=== PATIENT | female | born 2000 | race Caucasian/White ===

== ENCOUNTER 2021-09-20 18:50 | Emergency (ER) | payer OTHER ==
[~2021-09-20] VITALS: Ht 165.1 cm; Wt 68.0 kg
[2021-09-20 20:01] LABS: ABSOLUTE NEUTROPHILS 6.5 thou/uL (1.4-8.2); BASOPHILS 0.5 % (0.0-2.0); EOSINOPHILS 1.7 % (0.0-3.0); HEMATOCRIT 47.7 % (37.0-47.0); HEMOGLOBIN 16.6 gm/dL (12.0-15.0); LYMPHOCYTES 18.1 % (24.0-44.0); MCH 28.1 pg (26.0-34.0); MCHC 34.9 g/dL (28.0-37.0); MCV 80.5 fL (80.0-100.0); MONOCYTES 5.4 % (1.0-8.0); PLATELET COUNT 372 thou/uL (150-400); POLYS 74.3 % (36.0-66.0); RBC 5.93 mil/uL (4.20-5.00); RDW 14.2 % (10.5-14.5); WBC 8.7 thou/uL (4.0-11.0)
[2021-09-20 20:12] LABS: CALCIUM 9.5 mg/dL (8.5-10.1)
[2021-09-20 20:18] LABS: ALBUMIN 4.4 g/dL (3.4-5.0); DIRECT BILIRUBIN 0.5 mg/dL (<0.1-0.2); TOTAL BILIRUBIN 1.5 mg/dL (0.2-1.0); TOTAL PROTEIN 8.2 g/dL (6.4-8.2)
[2021-09-20 20:45] LABS: URINE BILIRUBIN 3+ (Negative); URINE BLOOD 3+ (Negative); URINE CLARITY CLOUDY; URINE COLOR BROWN; URINE GLUCOSE-RANDOM* TRACE (Negative); URINE KETONES TRACE (Negative); URINE LEUKOCYTES-REFLEX NEGATIVE (Negative); URINE PROTEIN (DIPSTICK) 1+ (Negative); URINE SPECIFIC GRAVITY >= 1.030 (1.005-1.035)
[2021-09-20 20:48] LABS: URINE NITRITE-REFLEX POSITIVE (Negative)
[2021-09-20 20:56] LABS: MUCUS >6 Heavy strn/LPF (None Seen)
[2021-09-20 20:57] LABS: CASTS None Seen /LPF (None Seen); SQUAMOUS 4-10 Moderate /LPF (0-3); URINE WBC-REFLEX 0-5 Rare /HPF (0-5)
[2021-09-20 20:59] LABS: CRYSTALS None Seen /LPF (None Seen)
[2021-09-20] MEDS ORDERED: CEPHALEXIN500 MG PO (23:26)
[2021-09-21 00:07] VITALS: BP 106/70
--- NOTE | 2021-09-21 10:57 | EKG ---
[address] [address] ELECTROCARDIOGRAM REPORT Name: JILLIAN FORRESTER Room #: [facility] Schneider#: [id number] Admission: 09/20/21 Attend Phys: Discharge: 09/21/21 Date of : [birth year] Report #: [id number] [facility] ED Test Date: 2021-09-20 Test Time: 19:27:29 Pat Name: JILLIAN FORRESTER Department: Room: Gender: F Electrician Assistant: : 2000 Requested By: Yefri Wilson Order Number: [id number] MD: Mani Bowling Measurements Intervals [place] Rate: 133 P: 81 MN: 154 QRS: 92 QRSD: 78 T: -35 QT: 284 QTc: 423 Interpretive Statements Sinus tachycardia Borderline right axis deviation Borderline repolarization abnormality No previous ECG available for comparison Electronically Signed On 09-21-2021 10:57:41 PROCEDURE ANALYST by Mani Bowling [email or web address] <ELECTRONICALLY SIGNED> By: Mani Bowling MD, [facility] 09/21/21 1057 1927 26 Mani Bowling MD, FACC /EPI
== END 2021-09-21 00:20 | disposition home or self-care (01) ==
LOC: ER 18:50
PROVIDERS: Student in an Organized Health Care Education/Training Program
DX: N39.0 Urinary tract infection, site not specified (principal); Z20.822 Contact with and (suspected) exposure to COVID-19; Z88.6 Allergy status to analgesic agent